=== PATIENT | female | born 1970 | race Caucasian/White ===

== ENCOUNTER 2019-06-17 09:11 | Emergency (ER) | payer BC, OTHER ==
[~2019-06-17] VITALS: Ht 152 cm; Wt 68.0 kg
[~2019-06-17 09:11] MED LIST: ALBU8.5H2 IH; BUDE0.5A2 IH; IPRA3AMP19 IH; LEVO500T69 PO; METH4TAB PO
[2019-06-17] MEDS ORDERED: KETOROLAC 30 MG/ML VIAL IVP STA (09:27)
--- NOTE | 2019-06-17 09:27 | ED GI ---
General Chief Complaint: Abdominal/GI Problems Stated Complaint: R SIDE PAIN Source of Information: Patient History of Present Illness Date Seen by Provider: Jun 17, 2019 Time Seen by Provider: 09:24 Initial Comments 49-year-old female presents with suprapubic/right lower quadrant pain that radiates to her back. Patient denies any dysuria. Patient denies any fevers or chills. She does not complain of any nausea or vomiting. The pain started abruptly around 8 AM this morning. Patient has already had an appendectomy. Allergies and Home Medications Allergies Coded Allergies: No Known Drug Allergies (Unverified , 03/16/12) Home Medications Albuterol 8.5 Gm Hfa.aer.ad, 8.5 GM IH Q4H, (Reported) 2 PUFFS Albuterol Sulfate/Ipratropium 3 Ml Solution, 3 ML IH Q 4 HOURS BY NEBULIZER FOR BREATHING Prescribed by: SONI MARCANO on 03/16/12 170 Budesonide 0.5 Mg/2 Ml Ampul.neb, 1 EACH IH BID FOR BREATHING Prescribed by: SONI MARCANO on 03/16/12 170 Levofloxacin 500 Mg Tab, 1 EACH PO DAILY FOR INFECTION Prescribed by: SONI MARCANO on 03/16/12 1703 Methylprednisolone 4 Mg/Dose-Pack Tab.ds.pk, 0 PO UD Prescribed by: SONI MARCANO on 03/16/12 170 Sulfamethoxazole/Trimethoprim 1 Each Tablet, 1 EACH PO BID Prescribed by: WILLOW LILLY on 06/17/19 1057 Patient Home Medication List Home Medication List Reviewed: Yes Review of Systems Review of Systems Constitutional: No chills, No fever Respiratory: Denies Cough Cardiovascular: Denies Chest Pain Gastrointestinal: Abdominal Pain Genitourinary: Denies Burning Musculoskeletal: back pain Skin: no symptoms reported Past Zvpehtt-Gqrsqz-Kvdslz Hx Past Med/Social Hx: Reviewed Nursing Past Med/Soc Hx Patient Social History Recent Foreign Travel: No Contact w/Someone Who Travel: No Immunizations Up To Date Date of Influenza Vaccine: Jan 15, 2012 Physical Exam Vital Signs Vital Signs - First Documented 06/17/19 09:12 Temp 35.8 Pulse 77 Resp 17 B/P (MAP) 147/103 (118) Pulse Ox 99 Capillary Refill : Height/Weight/BMI Height: '" Weight: lbs. oz. 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, no motor/sensory deficits, alert, normal mood/affect, oriented x 3 Skin: normal color, warm/dry Lymphatic: no adenopathy Progress/Results/Core Measures Results/Orders Lab Results Laboratory Tests Test 06/17/19 09:25 06/17/19 09:53 Range/Units Urine Color YELLOW Urine Clarity CLEAR Urine pH 7.0 5-9 Urine Specific Brock 1.020 1.016-1.022 Urine Protein NEGATIVE NEGATIVE Urine Glucose (UA) NEGATIVE NEGATIVE Urine Ketones NEGATIVE NEGATIVE Urine Nitrite NEGATIVE NEGATIVE Urine Bilirubin NEGATIVE NEGATIVE Urine Urobilinogen 0.2 < = 1.0 MG/DL Urine Leukocyte Esterase TRACE H NEGATIVE Urine RBC (Auto) 3+ H NEGATIVE Urine RBC 25-50 H /HPF Urine WBC 0-2 /HPF Urine Squamous Epithelial Cells 10-25 H /HPF Urine Crystals NONE /LPF Urine Bacteria FEW H /HPF Urine Casts NONE /LPF Urine Mucus SMALL H /LPF Urine Culture Indicated NO White Blood Count 7.7 4.3-11.0 10^3/uL Red Blood Count 4.59 4.35-5.85 10^6/uL Hemoglobin 13.4 11.5-16.0 G/DL Hematocrit 40 35-52 % Mean Corpuscular Volume 87 80-99 FL Mean Corpuscular Hemoglobin 29 25-34 PG Mean Corpuscular Hemoglobin Concent 34 32-36 G/DL Red Cell Distribution Width 13.9 10.0-14.5 % Platelet Count 268 130-400 10^3/uL Mean Platelet Volume 9.7 7.4-10.4 FL Neutrophils (%) (Auto) 78 H 42-75 % Lymphocytes (%) (Auto) 14 12-44 % Monocytes (%) (Auto) 6 0-12 % Eosinophils (%) (Auto) 2 0-10 % Basophils (%) (Auto) 0 0-10 % Neutrophils # (Auto) 6.0 1.8-7.8 X 10^3 Lymphocytes # (Auto) 1.1 1.0-4.0 X 10^3 Monocytes # (Auto) 0.5 0.0-1.0 X 10^3 Eosinophils # (Auto) 0.1 0.0-0.3 10^3/uL Basophils # (Auto) 0.0 0.0-0.1 10^3/uL Sodium Level 141 135-145 MMOL/L Potassium Level 4.0 3.6-5.0 MMOL/L Chloride Level 105 98-107 MMOL/L Carbon Dioxide Level 26 21-32 MMOL/L Anion Gap 10 5-14 MMOL/L Blood Urea Nitrogen 13 7-18 MG/DL Creatinine 0.74 0.60-1.30 MG/DL Estimat Glomerular Filtration Rate > 60 BUN/Creatinine Ratio 18 Glucose Level 105 70-105 MG/DL Calcium Level 9.3 8.5-10.1 MG/DL My Orders Orders - WILLOW LILLY DO Basic Metabolic Panel (06/17/19 09:27) Cbc With Automated Diff (06/17/19 09:27) Ua Culture If Indicated (06/17/19 09:27) Ketorolac Injection (Toradol Injection) (06/17/19 09:27) Ed Iv/Invasive Line Start (06/17/19 09:27) Ct Abd/Pelvis Wo(Kidney Stone) (06/17/19 09:55) Vital Signs/I&O 06/17/19 06/17/19 09:12 11:19 Temp 35.8 Pulse 77 65 Resp 17 17 B/P (MAP) 147/103 (118) 131/80 (118) Pulse Ox 99 99 Departure Impression Primary Impression: Urinary tract infection Qualified Codes: N30.01 - Acute cystitis with hematuria Disposition: HOME, SELF-CARE Condition: Stable Departure-Patient Inst. Referrals: NO,LOCAL PHYSICIAN (PCP) Primary Care Physician Patient Instructions: Urinary Tract Infection, Adult (DC) Add. Discharge Instructions: All discharge instructions reviewed with patient and/or family. Voiced understanding. NAME: PORTER JOSE MED REC#: [id number] PT STATUS: REG ER : 1970 PHYSICIAN: WILLOW LILLY DO ADMIT DATE: 06/17/19/ER Draft Date of Exam:06/17/19 CT ABD/PELVIS WO(KIDNEY STONE) PROCEDURE: CT urinary tract, rule out kidney stone. TECHNIQUE: Multiple contiguous axial images were obtained through the abdomen and pelvis without the use of intravenous contrast. Auto Exposure Controls were utilized during the CT exam to meet ALARA standards for radiation dose reduction. INDICATION: Right abdominal pain. Hematuria. Status post appendectomy. COMPARISON: None. FINDINGS: The lung bases are clear. The heart is normal in size. The liver demonstrates no focal lesions. The spleen appears normal. The pancreas is unremarkable. The adrenal glands appear normal. The kidneys appear normal with no hydronephrosis. No renal calculi are seen. The bowel loops are nondistended without obstruction. The appendix is not seen, and reportedly resected. The ascending colon and cecum lies in the midline. No free fluid or free air is seen. No acute osseous abnormality is seen. There are two 1.5 cm dominant follicles in the right ovary. IMPRESSION: 1. No acute abdominopelvic abnormality is seen. 2. The ascending colon and cecum are in the midline. No obstruction or bowel wall thickening is seen. Scripts Sulfamethoxazole/Trimethoprim (Bactrim Ds Tablet) 1 Each Tablet 1 EACH PO BID for 5 Days, #10 TAB Prov: WILLOW LILLY DO 06/17/19 WILLOW LILLY DO Jun 17, 2019 09:26
[2019-06-17 09:34] LABS: BILIRUBIN,URINE NEGATIVE (NEGATIVE); CLARITY,URINE CLEAR; COLOR,URINE YELLOW; GLUCOSE, URINE (UA) NEGATIVE (NEGATIVE); KETONES,URINE NEGATIVE (NEGATIVE); LEUKOCYTE ESTERASE ,URINE TRACE (NEGATIVE); NITRITE,URINE NEGATIVE (NEGATIVE); PROTEIN,URINE NEGATIVE (NEGATIVE)
[2019-06-17 09:50] LABS: BACTERIA,URINE FEW /HPF; RBC,URINE 25-50 /HPF; WBC,URINE 0-2 /HPF
[2019-06-17 10:02] LABS: BASOPHILS % (AUTO) 0 % (0-10); EOSINOPHILS # (AUTO) 0.1 10^3/uL (0.0-0.3); EOSINOPHILS % (AUTO) 2 % (0-10); HEMATOCRIT 40 % (35-52); HEMOGLOBIN 13.4 G/DL (11.5-16.0); LYMPHOCYTES # (AUTO) 1.1 X 10^3 (1.0-4.0); LYMPHOCYTES % (AUTO) 14 % (12-44); MEAN CORPUSCULAR HEMOGLOBIN 29 PG (25-34); MEAN CORPUSCULAR HGB CONC 34 G/DL (32-36); MEAN CORPUSCULAR VOLUME 87 FL (80-99); MEAN PLATELET VOLUME 9.7 FL (7.4-10.4); MONOCYTES # (AUTO) 0.5 X 10^3 (0.0-1.0); MONOCYTES % (AUTO) 6 % (0-12); NEUTROPHILS % (AUTO) 78 % (42-75); PLATELET COUNT 268 10^3/uL (130-400); RED CELL DISTRIBUTION WIDTH 13.9 % (10.0-14.5); WHITE BLOOD COUNT 7.7 10^3/uL (4.3-11.0)
[2019-06-17 10:24] LABS: BUN/CREATININE RATIO 18; CALCIUM 9.3 MG/DL (8.5-10.1); CARBON DIOXIDE 26 MMOL/L (21-32); CHLORIDE 105 MMOL/L (98-107); CREATININE SERUM 0.74 MG/DL (0.60-1.30); GFR ESTIMATED > 60; GLUCOSE 105 MG/DL (70-105); SODIUM 141 MMOL/L (135-145)
--- NOTE | 2019-06-17 10:38 | Diagnostic Imaging Report ---
PROCEDURE: CT urinary tract, rule out kidney stone. TECHNIQUE: Multiple contiguous axial images were obtained through the abdomen and pelvis without the use of intravenous contrast. Auto Exposure Controls were utilized during the CT exam to meet ALARA standards for radiation dose reduction. INDICATION: Right abdominal pain. Hematuria. Status post appendectomy. COMPARISON: None. FINDINGS: The lung bases are clear. The heart is normal in size. The liver demonstrates no focal lesions. The spleen appears normal. The pancreas is unremarkable. The adrenal glands appear normal. The kidneys appear normal with no hydronephrosis. No renal calculi are seen. The bowel loops are nondistended without obstruction. The appendix is not seen, and reportedly resected. The ascending colon and cecum lies in the midline. No free fluid or free air is seen. No acute osseous abnormality is seen. There are two 1.5 cm dominant follicles in the right ovary. IMPRESSION: 1. No acute abdominopelvic abnormality is seen. 2. The ascending colon and cecum are in the midline. No obstruction or bowel wall thickening is seen. Dictated by: Dictated on workstation # [id number]
[2019-06-17] MEDS ORDERED: SULF1TAB35 PO (10:57)
[2019-06-17 11:19] VITALS: BP 131/80
== END 2019-06-17 11:19 | disposition home or self-care (01) ==
LOC: EDUNIT# 09:11 → ER 09:12
DX: N39.0 Urinary tract infection, site not specified (principal)
CPT/HCPCS: 36415; 74176; 80048; 81000; 84703; 85025